=== PATIENT | female | born 1995 | race Caucasian/White ===

== ENCOUNTER 2024-05-07 10:19 | Outpatient (CLI) | payer BC | END 2024-05-07 10:20 | disposition home or self-care (01) | LOC: CSHMRI 10:19 | PROVIDERS: ATTEND Family Medicine | DX: M25.562 Pain in left knee (principal); G89.29 Other chronic pain; S89.92XS Unspecified injury of left lower leg, sequela; S83.242A Other tear of medial meniscus, current injury, left knee, initial encounter; M25.462 Effusion, left knee ==